=== PATIENT | female | born 1990 | race Hispanic/Latino ===

== ENCOUNTER 2016-04-27 08:37 | Emergency (ER) | payer OTHER ==
[~2016-04-27] VITALS: Ht 162.6 cm; Wt 93.2 kg
[2016-04-27] VITALS (7 sets, daily range): BP systolic 94–170; BP diastolic 38–103; PULSE 83–132; RESP 18–33; O2SAT 94–100
--- NOTE | 2016-04-27 08:39 | ED.REPORT ---
[id number] Illness Date of Service Apr 27, 2016 ED Provider: The patient is a 26 year old female who is currently 19 weeks 3 days , who presents to the emergency department complaining of flu-like symptoms that began yesterday morning. She first noticed a fever and has also had a cough, shortness of breath, sore throat, runny nose, hoarseness, myalgias , headache, jaw pain, and bilateral eye pain. She was recently around sick contacts with similar symptoms. She denies abdominal pain, vomiting, diarrhea, dysuria, hematuria, vaginal bleeding, vaginal discharge. She is otherwise healthy. She does not smoke tobacco, drink alcohol, or use illicit drugs. She denies history of asthma. Nursing Notes Stated Complaint: HEADACHE,HEAD AND NECK PAIN Nursing Notes Reviewed: Yes Allergies: Coded Allergies: No Known Allergies (Verified , 05/10/08) General Time Seen by Provider: 08:39 Chief Complaint Fever Hx Obtained From: Patient Arrived By: Walk-in Onset Occurred: Yesterday Symptom Duration: Since onset Progression Since Onset: Constant, Gradually worsening Location: : Head Quality: Painful Severity: Current: Moderate Severity: Maximum: Moderate Recent Healthcare: No recent doctor visit, No recent hospitalization Similar Sx Previous: No Past Medical History Past Medical History Notes: Past Medical History None Family History Noncontributory Smoking History Never Smoker Social History Alcohol Use: Denies alcohol use Drug Use: Denies drug use Other Social History: Good social support, Lives with children, Local resident Ambulatory Status Independent Review of Systems Review of Systems Note: +jaw pain, hoarseness Constitutional: Reports: Chills, Fever Eyes: Reports: Eye pain bilateral Ears / Nose / Throat: Reports: Nasal congestion, Sore throat, Throat pain Respiratory: Reports: Non-productive cough, Shortness of breath GI: Reports: Abdominal pain, Denies: Diarrhea, Nausea, Vomiting Musculoskeletal: Reports: Myalgia Neurologic: Reports: Headache Complete sys rev & neg: except as marked. Female: Reports: , Denies: Dysuria, Hematuria, Vaginal bleeding - abnl, Vaginal discharge Allergy / Immune: Reports: Rhinorrhea Physical Exam Initial Vital Signs Vital Signs (First) Date Time Temp Pulse Resp B/P Pulse Ox O2 Delivery O2 Flow Rate FiO2 04/27/16 08:42 38.9 132 18 141/90 100 04/27/16 09:42 Room Air Initial VS: Reviewed Head / Eyes: Atraumatic, Normocephalic, PERRL Abdomen / GI: Soft, Non-tender, No guarding, No rebound, No distention Lymphatic: No lymphadenopathy Extremities: Vascular intact, Neuro intact, No swelling, No tenderness Psychiatric: Mood/affect normal, Behavior normal, Normal thought content General/Constitutional: Awake, Alert, Cooperative Appearance / Presentation: Positive: Uncomfortable Neck: Atraumatic, Supple, No meningismus, Full range of motion, No adenopathy, No swelling, Non-tender, No masses Respiratory / Chest: Atraumatic, Breath sounds NL, Breath sounds = bilat, No respiratory distress, No rales, No rhonchi, No wheezing, No retractions Cardiovascular: Regular rhythm, Heart sounds NL, No murmurs, Peripheral circulation NL Heart Rate / Rhythm: Positive: Tachycardia Skin: Color NL, No rash, Warm, Dry, Turgor NL Neurologic: Oriented X3, Speech NL, No motor deficits, No sensory deficits, Cerebellar NL, Memory NL, Gait NL ENT: Airway patent, Mucous membranes moist, Pharynx NL Nose: Positive: Rhinorrhea (clear) Interpretation & Diagnostics Interpretation & Diagnostics: Negative for Influenza A and B BEDSIDE US: IUP with a heart rate of 130 bpm. Good movement. Adequate amniotic fluid. Lab Results Interpretation Result Diagram: 04/27/16 0910 04/27/16 0910 Test 04/27/16 09:10 04/27/16 11:06 White Blood Count 4.9th/mm3 (3.8-10.1) Red Blood Count 4.39mil/mm3 (3.90-5.20) Hemoglobin 11.7g/dL (12.0-15.6) Hematocrit 35.9% (35.0-46.0) Mean Corpuscular Volume 81.8fL (81-100) Mean Corpuscular Hemoglobin 26.7pg (27.0-35.0) Mean Corpuscular Hemoglobin Concent 32.6% (32.0-37.0) Red Cell Distribution Width 16.8% (12.3-15.4) Platelet Count 218bil/L (150-400) Neutrophils (%) (Auto) 85.9% (40-74) Lymphocytes (%) (Auto) 7.2% (14-46) Monocytes (%) (Auto) 6.5% (4-12) Eosinophils (%) (Auto) 0.2% (0-5) Basophils (%) (Auto) 0% (0-3) Sodium Level 134mEq/L (134-144) Potassium Level 4.0mEq/L (3.5-5.2) Chloride Level 101mEq/L (97-108) Carbon Dioxide Level 20mmol/L (18-29) Blood Urea Nitrogen 5mg/dL (6-20) Creatinine 0.50mg/dL (0.57-1.00) Estimat Glomerular Filtration Rate 215mL/min (>59) Glucose Level 96mg/dL (60-99) Lactic Acid Level 1.4mmol/L (0.4-2.0) Calcium Level 9.1mg/dL (8.5-10.1) Total Bilirubin 0.2mg/dL (0.0-1.2) Aspartate Amino Transf (AST/SGOT) 15U/L (0-50) Alanine Aminotransferase (ALT/SGPT) 11U/L (0-32) Alkaline Phosphatase 32U/L (25-150) Total Protein 7.1g/dL (6.4-8.4) Albumin 3.6g/dL (3.4-5.0) Urine Color Yellow (YELLOW) Urine Appearance Clear (CLEAR,HAZY) Urine pH 7.5 (5.0-8.0) Urine Specific [employer] 1.017 (1.003-1.035) Urine Protein Negativemg/dL (NEG,TRACE) Urine Glucose (UA) Negativemg/dL (NEGATIVE) Urine Ketones Negativemg/dL (NEGATIVE) Urine Occult Blood Negative (NEGATIVE) Urine Nitrite Negative (NEGATIVE) Urine Bilirubin Negative (NEGATIVE) Urine Urobilinogen Normalmg/dL (NORMAL) Urine Leukocyte Esterase Negative (NEGATIVE) Urine RBC 0-2/hpf (0-2) Urine WBC 0-5/hpf (0-5) Urine Epithelial Cells Few/hpf (NONE-MOD) Urine Crystals None seen (NONE SEEN) Urine Bacteria Few/hpf (NONE-FEW) Urine Hyaline Casts None/lpf (NONE) Urine Granular Casts None seen (NONE SEEN) Urine Waxy Casts None seen (NONE SEEN) Urine Red Blood Cell Casts None seen (NONE SEEN) Urine White Blood Cell Casts None seen (NONE SEEN) Urine Mucus None seen (None Seen) Urine Trichomonas None seen (NONE SEEN) Urine Yeast None (NONE SEEN) Urinalysis Comment None Urine Culture Reflexed Not indicated Rhythm Strip Interpretation : Time: 08:55 Rhythm Strip Interpretation: Interpreted by me, Sinus tachycardia X-Ray Chest Interpretation Chest Xray Interpretation: IMPRESSION: No acute cardiopulmonary disease. Dictated by: Godwin Perkins M.D. on 04/27/2016 at 9:38 View: Portable, 1 view Interpretation / Wet Read by: Interpret - Radiologist Re-Evaluation & MDM Med Decision/Clinical Course Initially I was quite concerned about this patient. I began treatments for dehydration and possible flu or other bacterial illness. Cultures were collected laboratory data was collected and x-ray data was obtained. All testing is reassuring and vital signs have normalized to the point where I believe outpatient follow-up is appropriate. I discussed the case with her primary care provider Dr. Hoang who agrees with outpatient follow-up tomorrow as planned. I have prescribed Tylenol 1000 mg every 6 hours and ibuprofen 800 mg every 8 hours (safe during second trimester) and oxycodone plain 5 tablets to take one every 4 hours as needed for more severe pain. Source of Hx: Old records, Family Re-Evaluation/Progress #1: Time of Eval: 10:24 Re-Evaluation/Progress Note: Her shortness of breath has improved but her pain remains the same. Re-Evaluation/Progress #2: Time of Eval: 11:46 Re-Evaluation/Progress Note: Rechecked the patient. Her headache and breathing has improved. Will consult with her OBGYN to discuss disposition. Re-Evaluation/Progress #3: Time of Eval: 12:27 Re-Evaluation/Progress Note: Rechecked the patient. She is feeling better. Will discharge home. Consultation : Referral / Consult Name: Randy Hoang MD Call Returned at: 11:49 Arboriculture Instructor: Will see in office, Agrees with eval, Agrees with plan Note: Spoke with the patient's OBGYN. He agrees with plan for discharge with outpatient followup. Counseled Regarding: Diagnosis, Lab results, Need for follow-up, When/why to return to ED Patient Discharge & Departure Impression: Primary Impression: Upper respiratory infection URI type: unspecified URI Qualified Code: J06.9 - Acute upper respiratory infection, unspecified Additional Impressions: Fever Fever type: unspecified Qualified Code: R50.9 - Fever, unspecified Weeks of gestation: 19 weeks Qualified Code: Z3A.19 - 19 weeks gestation of Dehydration Disposition: Home Discharge Condition All VS Reviewed: Yes Condition: Stable Patient Instructions: Dehydration (ED), Upper Respiratory Infection (ED) Additional Instructions: Thank you for entrusting us with your care today. Your labs and chest x-ray today are reassuring. There is no sign of anything acutely dangerous at this time. I spoke with Dr. Hoang who agrees with our plan to send you home. Keep your appointment with Dr. Hoang tomorrow. You can take Tylenol and/or ibuprofen as needed for your discomfort. Return to the emergency department for difficulty breathing, vomiting, inability to keep fluids down, or any other new or concerning symptoms. Keep yourself well-hydrated with plenty of oral fluids. Use Tylenol 1000 mg every 6 hours and ibuprofen 800 mg every 8 hours. If you still have significant pain you may take 1 oxycodone tablet every 4 hours for additional severe pain in addition to, but not instead of, the aforementioned medications. You did receive Tamiflu and 2 g of IV Rocephin in the ER today. Referrals: Randy Hoang MD (PCP) Scribe Attestation Portions of this note were transcribed by Cathy Galaviz. I, Dr. Kaushik Acuna personally performed the history, physical exam and medical decision-making; I reviewed and confirmed the accuracy of the information in the transcribed note. Signed by: Elsa Cruz, 04/27/2015 and 1235. copies to: Randy Hoang MD, Kirk H MD Apr 27, 2016 08:39 Cathy Galaviz Apr 27, 2016 08:40
[2016-04-27] MEDS ORDERED: 0.9% Sodium Chloride 1,000 ML IV PRN (08:54)
[2016-04-27] MEDS ORDERED: 0.9% Sodium Chloride 1,000 ML IV ONE (08:54)
[2016-04-27 09:30] LABS: BASOPHILS % (AUTO) 0 % (0-3); EOSINOPHILS % (AUTO) 0.2 % (0-5); MONOCYTES % (AUTO) 6.5 % (4-12); Mean Corpuscular Hemoglobin 26.7 pg (27.0-35.0); Mean Corpuscular Volume 81.8 fL (81-100); NEUTROPHILS % (AUTO) 85.9 % (40-74); Platelet Count 218 bil/L (150-400)
--- NOTE | 2016-04-27 09:40 | DRSVH ---
PROCEDURE: X-RAY CHEST ONE VIEW, PORTABLE ([id number]) INDICATIONS: 26 year-old female with cough and fever since yesterday. TECHNIQUE: One view of the chest was acquired. COMPARISON: None. FINDINGS: Patient's abdomen was shielded for the examination. Surgical changes and devices: None. Lungs and pleura: No pleural effusions or pneumothorax. Lungs are clear. Mediastinum: Mediastinal contours appear normal. Heart size is normal. Bones and chest wall: No suspicious bony lesions. Overlying soft tissues appear unremarkable. IMPRESSION: No acute cardiopulmonary disease. Dictated by: Godwin Perkins M.D. on 04/27/2016 at 9:38 Approved by: Godwin Perkins M.D. on 04/27/2016 at 9:38
[2016-04-27] MEDS ORDERED: cefTRIAXone Inj 2,000 MG in IV Premix 1 EACH IV ONE (10:00)
[2016-04-27 11:36] LABS: APPEARANCE,URINE CLEAR (CLEAR,HAZY); COLOR,URINE YELLOW (YELLOW); OCCULT BLOOD,URINE NEGATIVE (NEGATIVE); PH,URINE 7.5 (5.0-8.0); UROBILINOGEN,URINE NORMAL (NORMAL)
[2016-04-27] MEDS ORDERED: OXYC-474 PO (12:33)
[2016-04-28] MEDS ORDERED: cefTRIAXone Inj 2,000 MG in IV Premix 1 EACH IV SCH (08:30)
== END 2016-04-27 12:34 | disposition home or self-care (01) ==
LOC: SED 08:37
DX: O99.512 Diseases of the respiratory system complicating pregnancy, second trimester (principal); J06.9 Acute upper respiratory infection, unspecified; O99.282 Endocrine, nutritional and metabolic diseases complicating pregnancy, second trimester; E86.0 Dehydration; O26.892 Other specified pregnancy related conditions, second trimester; R50.9 Fever, unspecified; M79.1 Myalgia; R68.84 Jaw pain; H57.13 Ocular pain, bilateral; Z3A.19 19 weeks gestation of pregnancy
CPT/HCPCS: 36415; 71010; 80053; 81000; 83605; 85025; 87040; 87804; 87880; 96361; 96374; 99285; J7030